=== PATIENT | female | born 1990 | race Caucasian/White ===

== ENCOUNTER 2016-11-20 13:35 | Emergency (ER) | payer OTHER ==
[~2016-11-20] VITALS: Ht 157.5 cm; Wt 51.0 kg
[~2016-11-20 13:35] MED LIST: MCRK20 PO; SULF800T23 PO; [UNRECOGNIZED DRUG - OTHER] TD
[2016-11-20 13:40] VITALS: TEMP 37.5; Ht 157.5 cm; Wt 51.0 kg
[2016-11-20] MEDS ORDERED: SODIUM CHLORIDE 0.9% 1000ML 1,000 ML IV STA (14:23)
[2016-11-20] MEDS ORDERED: FAMOTIDINE 20 MG TAB PO STA (14:23)
[2016-11-20] MEDS ORDERED: SUCRALFATE 1 GM TAB PO STA (14:23)
[2016-11-20] MEDS ORDERED: GI COCKTAIL PO STA (14:23)
--- NOTE | 2016-11-20 14:23 | EMERGENCY ROOM VISIT NOTE ---
History Report prepared by Peg: Dominga Haskins Under the Supervision of: Dr. Mikie Beatty M.D. First contact with patient: 13:45 Chief Complaint: ABDOMINAL PAIN Stated Complaint: LOWER BACK SP, ABD PIRUPERTO CHEST PAIN History of Present Illness The patient is a 26 year old female who presents to the Emergency Room with complaints of waxing and waning epigastric abdominal pain that began yesterday. Nothing seems to make the pain better or worse. She also complains of lower back pain that is constant and chest pain. She has not taken anything for pain today. The patient states that she has not been getting her menstrual period since she discontinued taking control in September. Prior to that, she had her menstrual period through the entire month of August and first week of September. She called her asphalt coater today due to the continuation of her symptoms and was referred to the ER. She has never had abdominal surgery - she still has her appendix and gallbladder. There is a chance of although she had a negative test 3 weeks ago. Denies the possibility of an STD or retained tampon. She notes that she usually has 2-3 bowel movements a day. Denies diarrhea, constipation, or other complaints. She does not smoke and rarely consumes alcohol. Source of History: patient Onset: yesterday Position: abdomen (epigastric) Timing: waxes/wanes Associated Symptoms: + back pain, + chest pain, No diarrhea Review of Systems See HPI for pertinent positives & negatives. A total of 10 systems reviewed and were otherwise negative. Past Medical & Surgical Surgical Problems: (1) H/O wisdom tooth extraction Family History Diabetes mellitus FH: cancer FH: heart disease Hypertension Seizures Social History Smoking Status: Never Smoker Marital Status: single Occupation Status: unemployed Current/Historical Medications Scheduled Docusate Sodium (Colace), 1 CAP PO BID Senna (Senokot), 1 TAB PO HS Scheduled PRN Oxycodone/Acetaminophen 5MG/325MG (Percocet 5MG/325MG), 1-2 TAB PO Q4H PRN for Pain Allergies Coded Allergies: No Known Allergies (Verified , 02/14/14) Physical Exam Vital Signs Date Time Temp Pulse Resp B/P Pulse Ox O2 Delivery O2 Flow Rate FiO2 11/20/16 17:54 94 14 105/56 98 11/20/16 16:36 98 20 108/61 97 Room Air 11/20/16 15:47 97 16 120/59 98 Room Air 11/20/16 14:46 101 18 111/76 96 Room Air 11/20/16 14:11 102 11/20/16 13:40 37.5 67 16 123/71 97 Room Air Physical Exam GENERAL: Patient is a healthy-appearing well-nourished 26 year old female HEAD: Normocephalic atraumatic EYES: Ocular movements intact pupils equal and react to light OROPHARYNX mucous membranes are moist no exudates present no erythema or edema present NECK: Supple no nuchal rigidity CHEST: Good equal expansion LUNGS: Clear and equal to auscultation CARDIAC: Normal S1 and S2 ABDOMEN: Soft, tender to the right upper quadrant, no guarding BACK: No CVA tenderness EXTREMITIES: No pain upon palpation normal muscle strength in all groups no clubbing cyanosis or edema NEURO: Patient is following commands is answering questions appropriately. Alert and oriented x3 Cranial Nerves 2-12 grossly intact Medical Decision & Procedures ER Provider Diagnostic Interpretation: Radiology results as stated below per my review and radiologist interpretation: ULTRASOUND RIGHT UPPER QUADRANT ABDOMEN CLINICAL HISTORY: Right upper quadrant abdominal pain. COMPARISON STUDY: Abdominal ultrasound dated 01/27/2006. TECHNIQUE: Real-time, grayscale, and color flow sonography of the right upper quadrant of the abdomen was performed. Images are reviewed in the transverse and longitudinal planes. FINDINGS: Liver: The liver is normal in size and echotexture. There is no intrahepatic biliary ductal dilatation. The main portal vein is patent. Gallbladder: The gallbladder is normal in appearance. No gallstones are identified. There is no gallbladder wall thickening or pericholecystic fluid. A sonographic Estevez's sign is reportedly absent. The common bile duct measures up to 0.5 cm in diameter. Pancreas: Visualized portions of the pancreatic head and body are normal in appearance. The splenic vein is patent. Right kidney: Survey images of the right kidney demonstrate normal size and echotexture. There is no hydronephrosis. Ascites: None. IMPRESSION: Unremarkable sonographic assessment of the right upper quadrant. No gallstones are identified. Electronically signed by: Justin Ramirez M.D. 11/20/2016 3:15 PM Dictated Date/Time: 11/20/2016 3:14 PM PA CHEST WITH ABDOMINAL SERIES CLINICAL HISTORY: Right upper quadrant abdominal pain. FINDINGS: A PA chest radiograph is obtained. No prior studies are available for comparison at the time of dictation. The cardiomediastinal silhouette is unremarkable. The lungs and pleural spaces are clear. No pneumothorax is seen. The bony thorax is grossly intact. Supine and erect abdominal radiograph are correlated with abdominal ultrasound performed the same day 11/20/2016. There is a nonobstructed abdominal bowel gas pattern. Mild to moderate colonic fecal retention is observed. No intraperitoneal free air is seen. There are no abnormal abdominal calcifications. A naval piercing is noted. The lumbosacral spine and bony pelvis appear intact. IMPRESSION: 1. No active disease in the chest. 2. Unremarkable abdominal radiographs. Electronically signed by: Justin Ramirez M.D. 11/20/2016 3:24 PM Dictated Date/Time: 11/20/2016 3:22 PM Laboratory Results 11/20/16 14:02 Red Blood Count 4.86, Mean Corpuscular Volume 84.0, Mean Corpuscular Hemoglobin 29.4, Mean Corpuscular Hemoglobin Concent 35.0, Mean Platelet Volume 10.7, Neutrophils (%) (Auto) 74.8, Lymphocytes (%) (Auto) 15.2, Monocytes (%) (Auto) 8.3, Eosinophils (%) (Auto) 0.9, Basophils (%) (Auto) 0.6, Neutrophils # (Auto) 3.50, Lymphocytes # (Auto) 0.71, Monocytes # (Auto) 0.39, Eosinophils # (Auto) 0.04, Basophils # (Auto) 0.03 11/20/16 14:02 Test 11/20/16 14:02 11/20/16 14:40 11/20/16 14:45 White Blood Count 4.68 K/uL (4.8-10.8) Red Blood Count 4.86 M/uL (4.2-5.4) Hemoglobin 14.3 g/dL (12.0-16.0) Hematocrit 40.8 % (37-47) Mean Corpuscular Volume 84.0 fL (80-100) Mean Corpuscular Hemoglobin 29.4 pg (25-34) Mean Corpuscular Hemoglobin Concent 35.0 g/dl (32-36) Platelet Count 201 K/uL (130-400) Mean Platelet Volume 10.7 fL (7.4-10.4) Neutrophils (%) (Auto) 74.8 % Lymphocytes (%) (Auto) 15.2 % Monocytes (%) (Auto) 8.3 % Eosinophils (%) (Auto) 0.9 % Basophils (%) (Auto) 0.6 % Neutrophils # (Auto) 3.50 K/uL (1.4-6.5) Lymphocytes # (Auto) 0.71 K/uL (1.2-3.4) Monocytes # (Auto) 0.39 K/uL (0.11-0.59) Eosinophils # (Auto) 0.04 K/uL (0-0.5) Basophils # (Auto) 0.03 K/uL (0-0.2) RDW Standard Deviation 39.0 fL (36.4-46.3) RDW Coefficient of Variation 13.0 % (11.5-14.5) Immature Granulocyte % (Auto) 0.2 % Immature Granulocyte # (Auto) 0.01 K/uL (0.00-0.02) Anion Gap 10.0 mmol/L (3-11) Est Creatinine Clear Calc Drug Dose 81.5 ml/min Estimated GFR () 113.7 Estimated GFR (Non- 98.1 BUN/Creatinine Ratio 22.0 (10-20) Calcium Level 8.7 mg/dl (8.5-10.1) Total Bilirubin 0.4 mg/dl (0.2-1) Direct Bilirubin 0.1 mg/dl (0-0.2) Aspartate Amino Transf (AST/SGOT) 20 U/L (15-37) Alanine Aminotransferase (ALT/SGPT) 23 U/L (12-78) Alkaline Phosphatase 71 U/L (45-117) Total Creatine Kinase 98 U/L (26-192) Creatine Kinase MB 0.9 ng/ml (0.5-3.6) Creatine Kinase MB Ratio 0.9 (0-3.0) Troponin I < 0.015 ng/ml (0-0.045) Total Protein 7.8 gm/dl (6.4-8.2) Albumin 4.1 gm/dl (3.4-5.0) Lipase 147 U/L (73-393) Bedside D-Dimer 370 ng/mlFEU (0-450) Urine Color YELLOW Urine Appearance CLEAR (CLEAR) Urine pH 7.5 (4.5-7.5) Urine Specific [place] 1.023 (1.000-1.030) Urine Protein NEG (NEG) Urine Glucose (UA) NEG (NEG) Urine Ketones NEG (NEG) Urine Occult Blood NEG (NEG) Urine Nitrite NEG (NEG) Urine Bilirubin NEG (NEG) Urine Urobilinogen NEG (NEG) Urine Leukocyte Esterase TRACE (NEG) Urine WBC (Auto) 0 /hpf (0-5) Urine RBC (Auto) 0-4 /hpf (0-4) Urine Hyaline Casts (Auto) 0 /lpf (0-5) Urine Epithelial Cells (Auto) 20-30 /lpf (0-5) Urine Bacteria (Auto) NEG (NEG) Urine Test NEG (NEG) Labs reviewed by ED physician. Medications Administered Medications (Trade) Dose Ordered Sig/Love Route Start Time Stop Time Status Last Admin Dose Admin Sodium Chloride (Nss 1000ml) 1,000 ml @ 999 mls/hr Q1H1M STAT IV 11/20/16 14:23 11/20/16 15:23 DC 11/20/16 14:39 999 MLS/HR Miscellaneous Medication (Gi Cocktail) 24 ml NOW STAT PO 11/20/16 14:23 11/20/16 14:27 DC 11/20/16 14:39 24 ML Famotidine (Pepcid Tab) 20 mg NOW STAT PO 11/20/16 14:23 11/20/16 14:27 DC 11/20/16 14:39 20 MG Sucralfate (Carafate Tab) 1 gm NOW STAT PO 11/20/16 14:23 11/20/16 14:27 DC 11/20/16 14:39 1 GM Lidocaine HCl (Viscous Lidocaine 2% Soln) 20 ml STK-MED ONCE .ROUTE 11/20/16 14:33 11/20/16 14:36 DC 11/20/16 14:39 20 ML Al Hydroxide/Mg Hydroxide (Maalox Susp) 30 ml STK-MED ONCE .ROUTE 11/20/16 14:33 11/20/16 14:36 DC 11/20/16 14:39 30 ML Hydromorphone HCl (Dilaudid Inj) 0.5 mg NOW STAT IV 11/20/16 16:40 11/20/16 16:41 DC 11/20/16 16:52 0.5 MG Metoclopramide HCl (Reglan Inj) 10 mg NOW STAT IV 11/20/16 16:40 11/20/16 16:41 DC 11/20/16 16:51 10 MG ECG Indication: chest pain Rate (beats per minute): 106 Rhythm: normal sinus Findings: no acute ischemic change, no ectopy ED Course 1414: Past medical records reviewed. The patient was evaluated in room C11. A complete history and physical examination was performed. 1423: Ordered Sucralfate 1 gm PO, Pepcid Tab 20 mg PO, GI Cocktail 24 ml PO, NSS 1000 ml @ 999 mls/hr IV. 1638: I reassessed the patient. She was not feeling better. 1640: Ordered Reglan Inj 10 mg IV, Dilaudid Inj 0.5 mg IV. 1735: Upon reexamination the patient is resting comfortably. I discussed results and treatment plan with the patient. She verbalizes agreement and understanding. The patient is ready for discharge. Medical Decision Differential diagnosis: Etiologies such as appendicitis, diverticulitis, PUD, biliary pathology, UTI, pancreatitis, obstruction, mesenteric ischemia, aortic pathology, infections, inflammatory bowel disease, renal colic, as well as others were entertained. This is a 26-year-old female who presents emergency department complaining of epigastric pain that has been ongoing for the past 2 days. The patient is also concerned that she is . Her urine is negative and she has a normal CBC normal renal profile normal liver profile normal lipase. In addition the patient also has a normal ultrasound of her gallbladder. Using shared medical decision-making the patient was not satisfied with not having an answer for her pain so she requested a CAT scan of the abdomen and pelvis. The CT of the abdomen pelvis is also normal. The patient was given an IV along with Dilaudid and Zofran for the pain. Repeat examination revealed improvement patient's symptoms. I believe the patient can be safely discharged home however I recommended a clear liquid diet for the next 48 hours along with pain medication. Patient was in agreement with the treatment plan. Impression Primary Impression: Epigastric pain Scribe Attestation The scribe's documentation has been prepared under my direction and personally reviewed by me in its entirety. I confirm that the note above accurately reflects all work, treatment, procedures, and medical decision making performed by me. Departure Information Dispostion Home / Self-Care Prescriptions Docusate Sodium (COLACE) 100 Mg Cap 1 CAP PO BID for 10 Days, #20 CAP Prov: Mikie Beatty MD 11/20/16 Senna (Senokot) 8.6 Mg Tab 1 TAB PO HS for 10 Days, #10 TAB Prov: Mikie Beatty MD 11/20/16 Oxycodone/Acetaminophen 5MG/325MG (PERCOCET 5MG/325MG) Tab 1-2 TAB PO Q4H Y for Pain, #14 TAB Prov: Mikie Beatty MD 11/20/16 Referrals Rosaura Berry M.D. (PCP) Patient Instructions ED Epigastric Pain [facility] Additional Instructions Clear liquid diet next 48 hours You received narcotic or benzodiazepene medication while in the emergency room today. Do not drive, operate heavy machinery, or drink alcohol under the influence of this medication. Take 600 mg Ibuprofen every 6 hours Take Percocet for breakthrough pain Radiographs and CTs will be reread by a radiologist in the morning. You have been examined and treated today on an emergency basis only. This is not a substitute for, or an effort to provide, complete comprehensive medical care. It is impossible to recognize and treat all injuries or illnesses in a single emergency department visit. It is therefore important that you follow up closely with Dr Berry. Call as soon as possible for an appointment. Thank you for your time and consideration. I look forward to speaking with you again soon. Please don't hesitate to call us if you have any questions.
[2016-11-20] MEDS ORDERED: ALUMINUM/MAGNESIUM SUSP 30 ML UDC ONE (14:33)
[2016-11-20] MEDS ORDERED: LIDOCAINE HCL 2% VISC SOLN 20 ML UDC ONE (14:33)
[2016-11-20 14:41] LABS: BASO % 0.6 %; BASO ABS # 0.03 K/uL (0-0.2); COMPLETE YES; EOS % 0.9 %; HEMATOCRIT 40.8 % (37-47); IG% 0.2 %; LYMPH % 15.2 %; LYMPH ABS # 0.71 K/uL (1.2-3.4); MEAN CORPUSCULAR HEMOGLOBIN 29.4 pg (25-34); MEAN PLATELET VOLUME 10.7 fL (7.4-10.4); MONO % 8.3 %; NEUT % 74.8 %; PLATELET COUNT 201 K/uL (130-400); RED BLOOD COUNT 4.86 M/uL (4.2-5.4); WHITE BLOOD COUNT 4.68 K/uL (4.8-10.8)
[2016-11-20 14:49] LABS: ALT/SGPT 23 U/L (12-78); BLOOD UREA NITROGEN 18 mg/dl (7-18); CALCIUM 8.7 mg/dl (8.5-10.1); CARBON DIOXIDE 23 mmol/L (21-32); CHLORIDE 105 mmol/L (98-107); CREATININE 0.82 mg/dl (0.60-1.20); GLUCOSE 90 mg/dl (70-99); POTASSIUM 3.6 mmol/L (3.5-5.1); SODIUM 138 mmol/L (136-145)
[2016-11-20 14:54] LABS: ALKALINE PHOSPHATASE 71 U/L (45-117); AST/SGOT 20 U/L (15-37); CKMB/CK RATIO 0.9 (0-3.0)
--- NOTE | 2016-11-20 15:16 | DIAGNOSTIC IMAGING REPORT ---
ULTRASOUND RIGHT UPPER QUADRANT ABDOMEN CLINICAL HISTORY: Right upper quadrant abdominal pain. COMPARISON STUDY: Abdominal ultrasound dated 01/27/2006. TECHNIQUE: Real-time, grayscale, and color flow sonography of the right upper quadrant of the abdomen was performed. Images are reviewed in the transverse and longitudinal planes. FINDINGS: Liver: The liver is normal in size and echotexture. There is no intrahepatic biliary ductal dilatation. The main portal vein is patent. Gallbladder: The gallbladder is normal in appearance. No gallstones are identified. There is no gallbladder wall thickening or pericholecystic fluid. A sonographic Estevez's sign is reportedly absent. The common bile duct measures up to 0.5 cm in diameter. Pancreas: Visualized portions of the pancreatic head and body are normal in appearance. The splenic vein is patent. Right kidney: Survey images of the right kidney demonstrate normal size and echotexture. There is no hydronephrosis. Ascites: None. IMPRESSION: Unremarkable sonographic assessment of the right upper quadrant. No gallstones are identified. Electronically signed by: Justin Ramirez M.D. 11/20/2016 3:15 PM Dictated Date/Time: 11/20/2016 3:14 PM
[2016-11-20 15:22] LABS: URINE APPEARANCE CLEAR (CLEAR); URINE BILIRUBIN NEG (NEG); URINE COLOR YELLOW; URINE EPITHELIAL CELL AUTO 20-30 /lpf (0-5); URINE NITRITE NEG (NEG); URINE PH 7.5 (4.5-7.5); URINE SPECIFIC GRAVITY 1.023 (1.000-1.030); UROBILINOGEN NEG (NEG)
[2016-11-20 15:24] LABS: MANUAL MICROSCOPIC REQUIRED? NO; REVIEW REQ? NO
--- NOTE | 2016-11-20 15:25 | DIAGNOSTIC IMAGING REPORT ---
PA CHEST WITH ABDOMINAL SERIES CLINICAL HISTORY: Right upper quadrant abdominal pain. FINDINGS: A PA chest radiograph is obtained. No prior studies are available for comparison at the time of dictation. The cardiomediastinal silhouette is unremarkable. The lungs and pleural spaces are clear. No pneumothorax is seen. The bony thorax is grossly intact. Supine and erect abdominal radiograph are correlated with abdominal ultrasound performed the same day 11/20/2016. There is a nonobstructed abdominal bowel gas pattern. Mild to moderate colonic fecal retention is observed. No intraperitoneal free air is seen. There are no abnormal abdominal calcifications. A naval piercing is noted. The lumbosacral spine and bony pelvis appear intact. IMPRESSION: 1. No active disease in the chest. 2. Unremarkable abdominal radiographs. Electronically signed by: Justin Ramirez M.D. 11/20/2016 3:24 PM Dictated Date/Time: 11/20/2016 3:22 PM
[2016-11-20] MEDS ORDERED: HYDROmorphone INJ 0.5 MG/0.5 ML SYR IV STA (16:40)
[2016-11-20] MEDS ORDERED: METOCLOPRAMIDE HCL INJ 5 MG/ML 2 ML VIAL IV STA (16:40)
[2016-11-20] MEDS ORDERED: OPTIRAY 320 IV PRN (17:00)
--- NOTE | 2016-11-20 17:16 | DIAGNOSTIC IMAGING REPORT ---
ABDOMEN AND PELVIS CT WITH IV CONTRAST CT DOSE: 271.10 mGy.cm HISTORY: Left upper quadrant abdominal pain. TECHNIQUE: Multiaxial CT images of the abdomen and pelvis were performed following the use of intravenous contrast. COMPARISON STUDY: None. FINDINGS: The lung bases are clear. The liver, spleen, gallbladder, pancreas, kidneys, and adrenal glands are within normal limits. No bowel wall thickening or obstruction. The pelvic organs are unremarkable. No suspicious lytic or blastic osseous lesions. Punctate calcifications within the deep pelvis favor phleboliths. A 2.3 cm right ovarian cyst. Normal appendix measuring up to 6 mm. IMPRESSION: 1. No bowel wall thickening or obstruction. 2. No hydronephrosis. 3. Normal appendix. Electronically signed by: Jean Carlos Strong M.D. 11/20/2016 5:15 PM Dictated Date/Time: 11/20/2016 5:10 PM
[2016-11-20] MEDS ORDERED: OXYC-57 PO (17:42)
[2016-11-20] MEDS ORDERED: SENN-61 PO (17:42)
[2016-11-20] MEDS ORDERED: DOCU-94 PO (17:42)
[2016-11-20 17:54] VITALS: BP 105/56; PULSE 94; O2SAT 98
[2016-11-30 09:29] LABS: ISTAT CREATININE 0.8 mg/dl (0.6-1.3); ISTAT HEMOGLOBIN 14.3 g/dl (12.0-16.0); ISTAT IONIZED CALCIUM 1.2 mmol/l (1.12-1.32)
== END 2016-11-20 17:55 | disposition home or self-care (01) ==
LOC: C.EDB 13:38 → C.EDC 17:55
DX: R10.13 Epigastric pain (principal)

== ENCOUNTER → 2017-08-27 | Outpatient (CLI) | payer OTHER | END | disposition home or self-care (01) | LOC: C.PAPS 15:55 | PROVIDERS: ATTEND Physician Assistant | DX: Z01.419 Encounter for gynecological examination (general) (routine) without abnormal findings (principal) ==

== ENCOUNTER → 2017-09-14 | Outpatient (CLI) | payer OTHER ==
[~2017-09-14] MED LIST changes: -MCRK20 PO; +OXYC-57 PO; -SULF800T23 PO; -[UNRECOGNIZED DRUG - OTHER] TD
[2017-09-14 17:52] LABS: HEMATOCRIT 40.7 % (37-47); HEMOGLOBIN 14.2 g/dL (12.0-16.0); MEAN CELL VOLUME 85.1 fL (80-100); MEAN CORPUSCULAR HEMOGLOBIN 29.7 pg (25-34); MEAN CORPUSCULAR HGB CONC 34.9 g/dl (32-36); MEAN PLATELET VOLUME 10.8 fL (7.4-10.4); PLATELET COUNT 251 K/uL (130-400); RED CELL DISTRIBUTION WIDTH CV 12.7 % (11.5-14.5); RED CELL DISTRIBUTION WIDTH SD 39.6 fL (36.4-46.3); WHITE BLOOD COUNT 5.93 K/uL (4.8-10.8)
== END | disposition home or self-care (01) ==
LOC: C.LAB1850 16:33
PROVIDERS: ATTEND Obstetrics & Gynecology
DX: Z01.812 Encounter for preprocedural laboratory examination (principal)

== ENCOUNTER → 2017-09-30 | Day surgery (SDC) | payer OTHER ==
[2017-09-07 12:18] VITALS: Ht 157.5 cm; Wt 52.3 kg
[~2017-09-30] VITALS: Ht 157.5 cm; Wt 52.3 kg
[~2017-09-30] MED LIST changes: +ATROPINE SULFATE 0.1 MG/ML 5ML SYR IV PRN; +BUPIVACAINE 0.25% 2.5MG/ML PF 10 ML VIAL ONE; +DEXAMETHASONE SOD INJ 4 MG/ML VIAL ONE; +EpHEDrine SULFATE INJ 50 MG/ML AMP IV PRN; +EpHEDrine SULFATE INJ 50 MG/ML AMP ONE; +FENTANYL CITRATE INJ 50 MCG/1 ML 2 ML VIAL IV PRN; +FENTANYL CITRATE INJ 50 MCG/1 ML 2 ML VIAL ONE; +GLYCOPYRROLATE INJ 0.2 MG/ML VIAL ONE; +HYDROmorphone INJ 1 MG/ML SYR IV PRN; +KETOROLAC TROMETHAMINE 30 MG/ML VIAL ONE; +LACTATED RINGER'S 1000ML 1,000 ML IV SCH; +LIDOCAINE HCL 2% 2 ML VIAL (20MG/ML) ONE; +MIDAZOLAM HCL 1 MG/ML 2ML VIAL ONE; +NEOSTIGMINE METHYLSULFATE 5 MG/5 ML SYR ONE; +ONDANSETRON INJ 2 MG/ML 2 ML VIAL IV PRN; +ONDANSETRON INJ 2 MG/ML 2 ML VIAL ONE; +OXYCODONE/ACETAMINOPHEN 5-325 TAB PO PRN; +PROMETHAZINE HCL INJ 12.5 MG in SODIUM CHLORIDE 0.9% 50ML 50 ML IV PRN; +PROMETHAZINE HCL INJ 25 MG in SODIUM CHLORIDE 0.9% 50ML 50 ML IV PRN; +PROPOFOL IV EMULSION 10 MG/ML 20 ML VIAL IV ONE; +ROCURONIUM BROMIDE 10 MG/ML 5 ML VIAL IV ONE; +SODIUM CHLORIDE 0.9% 1000ML 1,000 ML IV SCH
--- NOTE | 2017-09-30 08:55 | History & Physical Bridge - SC ---
H&P Re-Evaluation Bridge Note: I have examined the patient, reviewed the History & Physical and in the interval since the performance of the History & Physical I have noted the following changes of clinical significance: No changes noted
--- NOTE | 2017-09-30 10:59 | [facility] Post Operative Brief Note ---
Immediate Operative Summary Operative Date Sep 30, 2017. Pre-Operative Diagnosis Request for sterilization Post-Operative Diagnosis same Procedure(s) Performed Laparoscopic Tubal Sterilization by Filshie Clip, Partial Right Salpingectomy with excision of right paratubal cyst Surgeon Dr Roblero Electrical Equipment Assembler Surgeon(s) none Estimated Blood Loss 20ml Findings 3cm right paratubal cyst, otherwise normal uterus, tubes, ovaries, gallbladder, appendix. Fluids (cc crystalloids) 1200ml Specimens A)Right Paratubal Cyst Drains beckman, clear yellow. Removed at conclusion of case. Anesthesia general Complication(s) None Disposition Recovery Room / PACU
--- NOTE | 2017-09-30 11:12 | Discharge Instructions-SurgCtr ---
Discharge Instructions Date of Service Sep 30, 2017. Visit Reason for Visit: Request For Sterilization Discharge Discharge Diagnosis / Problem: desire for sterilization, right paratubal cyst Discharge Goals Goal(s): Therapeutic intervention Activity Recommendations Activity Limitations: per Instructions/Follow-up section Anesthesia . Post Anesthesia Instructions: If you have had General Anesthesia or IV Sedation: * Do not drive today. * Resume driving when surgeon permits. * Do not make important decisions or sign legal documents today. * Call surgeon for: 1. Temperature elevations greater than 101 degrees F. 2. Uncontrollable pain. 3. Excessive bleeding. 4. Persistent nausea and vomiting. 5. Medication intolerance (nausea, vomiting or rash). * For nausea and vomiting use only clear liquids such as: tea, soda, bouillon until nausea subsides, then gradually increase diet as tolerated. * If you have any concerns or questions, call your surgeon's office. If physician is unavailable and it is an emergency, call 911 or go to the nearest emergency room. . Instructions / Follow-Up Instructions / Follow-Up ACTIVITY RECOMMENDATIONS: * Rest the first 2-3 days. You should be back to your normal activity levels by day 3. * No heavy lifting for 2 weeks. * No intercourse, tampons or douching for 1-2 weeks. * You may shower the next day. * Do not drive anytime that you are taking narcotic pain medicines. RETURN TO SCHOOL/WORK: * May return to school or work after 2-3 days. DIET: Nausea may occur in the immediate post-operative period. If so, take clear liquids such as tea, bouillon, apple juice until all nausea has subsided, then resume usual diet. MEDICATIONS: Resume previous medications unless instructed otherwise by your surgeon. Ibuprofen 200mg 2-3 tablets every 4-6 hours as needed -- OR -- Aleve 2 tablets every 8-12 hours as needed for post-operative discomfort Medications are over the counter. Tylenol may be used if above medications are contraindicated or not preferred. Medication should be taken with food or milk. Do not take on an empty stomach. SPECIAL CARE INSTRUCTIONS: * Check temperature twice daily for one week. report any elevation over 101 degrees. * You may experience some vagina spotting and/or bleeding. This is normal for 1 -2 weeks and should not be heavier than a normal period. If it is unusual in amount, call your physician. * Post-operative discomfort may consist of a sore throat, a "bloated" feeling and pain in the shoulders. these are normal symptoms, which usually only last for 2-3 days. * Remove band-aids tomorrow and shower. There is no need to replace band-aids unless there is drainage or discomfort. FOLLOW UP VISIT: Call your doctor's office for a post-operative 2 week visit if not already scheduled. Diet Recommendations Home Diet: resume previous diet Procedures Procedures Performed: Laparoscopic Tubal Sterilization by Filshie Clip, Partial Right Salpingectomy with excision of right paratubal cyst Pending Studies Studies pending at discharge: yes List of pending studies: path of paratubal cyst Medical Emergencies . Who to Call and When: Medical Emergencies: If at any time you feel your situation is an emergency, please call 911 immediately. . Non-Emergent Contact Non-Emergency issues call your: Primary Care Provider, Plumber Cub . . "Provider Documentation" section prepared by Alis Roblero. . [place] Drug Monitoring Program Search Results: patient reviewed within database
--- NOTE | 2017-09-30 11:44 | OPERATIVE REPORT ---
DATE OF OPERATION: 09/30/2017 PREOPERATIVE DIAGNOSIS: Request for sterilization. POSTOPERATIVE DIAGNOSES: Same plus incidental finding of right paratubal cyst. PROCEDURE: Laparoscopic tubal sterilization by Filshie clip and partial right salpingectomy with excision of right paratubal cyst. SURGEON: Alis Roblero DO. MAINTENANCE TECHNICIAN 3RD SHIFT: None. ESTIMATED BLOOD LOSS: 20 mL. FINDINGS: A 3 cm right paratubal cyst, otherwise normal uterus, tubes, ovaries, gallbladder and appendix. FLUIDS: 1200 mL. SPECIMENS: Right paratubal cyst. DRAINS: Mcwilliams, clear yellow urine at the conclusion of case. ANESTHESIA: General. COMPLICATIONS: None. DISPOSITION: Stable and good to recovery area. INDICATIONS FOR PROCEDURE: The patient is a 27-year-old G2, P2 with 2 children who has completed her childbearing and desires permanent sterilization. She has reviewed all options for contraceptive methods and desires a permanent surgical management. She had previously signed informed consent in the office and was counseled on risks, benefits, alternatives to the procedure and is aware that there is a 2-3 per 1,000 cases risk of after tubal ligation. She elected to proceed with surgery. OPERATION AND FINDINGS: DESCRIPTION OF PROCEDURE: The patient was seen in the preoperative holding area where risks, benefits, alternatives to surgery were again reviewed. All questions were answered. The patient was taken to the operating room where general anesthesia was administered. She was prepared and draped in the usual sterile fashion in the dorsal lithotomy position with feet in Yellofin stirrups. A timeout was confirmed. A Mcwilliams catheter was placed in the bladder. A weighted speculum was placed in the vagina. The anterior lip of the cervix was grasped with a single tooth tenaculum and the acorn manipulator was inserted through the cervix and gloves were changed and attention was then turned to the abdomen. Infraumbilical incision was made with a scalpel and using the open Levar technique the infraumbilical trocar was placed. The camera was inserted. The patient was placed in Trendelenburg position and intraabdominal placement was noted and the abdomen was insufflated with CO2 gas to 15 mmHg. The pelvic structures were visualized and identified and a 3 cm right paratubal cyst was noted and appeared to be very mobile and I felt that this had a strong possibility of torsion and thus potentially requiring future further surgery and felt that this warranted removal. I stepped away from the field and called the patient's mother who was her family member with her for the surgery and discussed with her and agreed upon removal of the incidental finding of a paratubal cyst during the sterilization procedure. I had consented the patient in the office with a consent that included discussion about possible further procedures or possible additional procedures at time of surgery. A AneumedppDeclara bipolar cautery was used to coagulate through the mesosalpinx and through the fallopian tube just proximal to the paratubal cyst then cold scissors were used to transect the fimbria and portion of the tube that was attached to the paratubal cyst. Excellent hemostasis was observed. Next, the Filshie clip applicator was loaded and a Filshie clip was placed on each fallopian tube with each tube identified by its fimbria and traced back to insertion of the uterus. The paratubal cyst was then placed in an EndoCatch bag and removed through the infraumbilical incision. This was sent to pathology for further evaluation. All instruments were removed from the abdomen. The infraumbilical incision fascia was reapproximated using 0 Vicryl in 2 [id number] stitches. All skin incisions were reapproximated with 4-0 Vicryl in a subcuticular stitch. Dermabond glue was used to reapproximate skin edges. The patient tolerated the procedure well. All instrument, sponge and needle counts were correct at the conclusion of the case. The patient was then taken to recovery area in stable and good condition. I attest to the content of the Intraoperative Record and any orders documented therein. Any exception s are noted below.
[2017-09-30 12:20] VITALS: TEMP 37.3
--- NOTE | 2017-09-30 12:43 | Anesthesia Progress Nt - [facility] ---
Anesthesia Post Op Note Date & Time Sep 30, 2017 at 12:42 Vital Signs Pain Intensity: 3.0 Vital Signs Past 12 Hours Date Time Temp Pulse Resp B/P (MAP) Pulse Ox O2 Delivery O2 Flow Rate FiO2 09/30/17 12:20 37.3 59 16 103/63 (76) 98 Room Air 09/30/17 12:06 56 18 09/30/17 12:06 56 18 98 09/30/17 12:05 110/68 09/30/17 12:01 67 16 09/30/17 12:01 68 16 98 09/30/17 12:01 37.4 54 12 110/68 98 Room Air 09/30/17 12:00 109/67 09/30/17 11:56 53 16 96 09/30/17 11:56 53 16 09/30/17 11:55 110/71 09/30/17 11:51 57 14 99 09/30/17 11:51 58 14 09/30/17 11:50 110/72 09/30/17 11:46 57 11 09/30/17 11:46 57 11 100 09/30/17 11:45 111/74 09/30/17 11:41 61 16 09/30/17 11:41 60 16 09/30/17 11:40 107/67 09/30/17 11:36 51 18 100 09/30/17 11:36 52 18 09/30/17 11:35 111/70 09/30/17 11:31 58 13 100 09/30/17 11:31 57 13 09/30/17 11:30 112/70 09/30/17 11:26 55 22 100 18 11:26 55 22 18 11:25 108/63 18 11:23 54 17 100 18 11:23 54 17 18 11:20 97/64 09/30/17 11:18 58 18 100 18 11:18 58 18 09/30/17 11:15 99/55 09/30/17 11:13 63 16 100 18 11:13 64 16 09/30/17 11:11 103/64 09/30/17 11:02 36.6 65 12 104/64 98 Room Air 09/30/17 07:56 36.8 90 16 109/68 (82) 97 Room Air Notes Mental Status: alert / awake / arousable, participated in evaluation Pt Amnestic to Procedure: Yes Nausea / Vomiting: adequately controlled Pain: adequately controlled Airway Patency, RR, SpO2: stable & adequate BP & HR: stable & adequate Hydration State: stable & adequate Anesthetic Complications: no major complications apparent
[2017-09-30 12:53] VITALS: O2SAT 99
[2017-09-30 12:58] VITALS: BP 94/59; PULSE 67
== END | disposition home or self-care (01) ==
LOC: X.SURG 07:31
PROVIDERS: ATTEND Obstetrics & Gynecology
DX: Z30.2 Encounter for sterilization (principal); D28.2 Benign neoplasm of uterine tubes and ligaments; N83.8 Other noninflammatory disorders of ovary, fallopian tube and broad ligament; Z80.41 Family history of malignant neoplasm of ovary; Z80.3 Family history of malignant neoplasm of breast; Z81.8 Family history of other mental and behavioral disorders